=== PATIENT | female | born 1990 | race Hispanic/Latino ===

== ENCOUNTER 2016-11-16 17:13 | Emergency (ER) | payer OTHER ==
[~2016-11-16] VITALS: Ht 162.6 cm; Wt 59.0 kg
[~2016-11-16 17:13] MED LIST: BACTRIM DS 8001 TAB PO; BACTRIM DS TAB1 EACH PO; CARAFATE1 GM/10 ML PO; CIPRO 500MG (E500 MG PO; IBUPROFEN800 M1 PO; MECLIZINE HCL25 MG PO; MIRTAZAPINE15 MG PO; NAPROSYN 500 M500 MG PO; PROTONIX 40MG T40 MG PO; TRAMADOL50 MG PO
[2016-11-16 17:27] VITALS: BP 115/70
[2016-11-16] MEDS ORDERED: MEDROXYPRO150 MG/11 (17:50)
--- NOTE | 2016-11-16 17:59 | ED SKIN/ALLERGY COMPLAINT ---
History of Present Illness General Chief Complaint: Skin Rash/ Abcess Stated Complaint: PT HAS A RASH OVER HER BODY Source: patient Exam Limitations: no limitations Vital Signs & Intake/Output Vital Signs & Intake/Output Vital Signs Date Time Temp Pulse Resp B/P B/P Pulse O2 O2 Flow FiO2 Mean Ox Delivery Rate 11/16 1727 98.3 80 16 115/70 98 Room Air Room Air Allergies Coded Allergies: No Known Allergies (11/16/16) Reconcile Medications Hydroxyzine HCl 25 MG TABLET 1 TAB PO BID PRN itching Meclizine HCl 25 MG TABLET 1 TAB PO TIDPRN DIZZINESS Medroxyprogesterone Acetate (Unknown Strength) SYRINGE (Unknown Dose) UNKNOWN (Reported) Triage Note: PT BROUGHT DIRECTLY TO [facility] 18 FOR RASH TO LEFT HIP RIGHT FLANK, BACK AND RIGHT ARM. STATES IT STARTED A COUPLE DAYS PRIOR AND HAS BEEN SPREADING. STATES ONYL SYMPTOMS IS ITCHING Triage Nurses Notes Reviewed? yes : No Patient currently breastfeeds: No HPI: This patient is a 26-year-old female who presented to the emergency department today for evaluation of a rash. The patient reported that she first noticed the rash on her upper, anterior left thigh approximately a week ago. She reported that it started to spread a couple days ago when she noticed that she was getting the rash on her right forearm and right shoulder blade a couple days ago. The patient reported that the rash is itchy and not painful. She denied any fevers or chills. No chest pain or difficulty breathing. She was sick with the flu a couple weeks ago. She reported that at that time she did have a scratchy throat. She denied any abdominal pain, nausea, vomiting. No paresthesias. Past History Travel History Traveled to [place] past 21 day No Medical History Any Pertinent Medical History? see below for history Neurological: NONE EENT: NONE Cardiovascular: NONE Respiratory: NONE Gastrointestinal: cholecystitis Hepatic: NONE Renal: NONE Musculoskeletal: NONE Psychiatric: depression Endocrine: NONE Blood Disorders: NONE Cancer(s): NONE APARTMENT COORDINATOR/Reproductive: genital herpes Tetanus Vaccine: 09/06/12 Surgical History Surgical History: cholecystectomy Psychosocial History Who do you live with Significant Other Services at Home NONE What is your primary language Slovak Tobacco Use: Never used ETOH Use: denies use Illicit Drug Use: denies illicit drug use Family History Hx Contributory? No Review of Systems Review of Systems Constitutional: Reports: no symptoms. EENTM: Reports: no symptoms. Respiratory: Reports: no symptoms. Cardiovascular: Reports: no symptoms. GI: Reports: no symptoms. Musculoskeletal: Reports: no symptoms. Skin: Reports: see HPI. Neurological/Psychological: Reports: no symptoms. All Other Systems: Reviewed and Negative Physical Exam Physical Exam General Appearance: well developed/nourished, no apparent distress, alert, awake Comments: Well-developed well-nourished person in no acute distress HEENT: Normal EENT exam, normocephalic/atraumatic, moist mucous membranes Pupils equally round and reactive to light. Neck: Supple, no lymphadenopathy Back: Normal gait Cardiovascular: Regular rate and rhythm with no murmurs, rubs, or gallops Respiratory: Chest nontender. No respiratory distress. Breath sounds clear to auscultation bilaterally Extremity: Normal and equal pulses Neuro: Alert oriented x3, motor sensory normal, cranial nerves II through XII grossly intact. Skin: Skin is warm and dry. Maculopapular, erythematous, coalescing rash to the proximal anterior left thigh with extension into the groin region and under the abdomen. Maculopapular, erythematous rash noted to the right forearm with overlying excoriations. Papular, erythematous rash to the right shoulder blade. No central clearing Psych: Mood and affect is normal, memory and judgment is normal. Progress Differential Diagnosis: abscess/cellulitis, allergic reaction, contact dermatitis, erythema multiforme, lyme disease, scarlet fever, shingles, urticaria Plan of Care: Orders Procedure Date/time Status COMPREHENSIVE METABOLIC PANEL 11/16 175 Complete CBC WITHOUT DIFFERENTIAL 11/16 1753 Complete Laboratory Tests 11/16/16 1818: Anion Gap 12, Estimated GFR > 60, BUN/Creatinine Ratio 15.7, Glucose 83, Calcium 9.2, Total Bilirubin 0.3, AST 15, ALT 28, Alkaline Phosphatase 47, Total Protein 7.1, Albumin 3.9, Globulin 3.2, Albumin/Globulin Ratio 1.2, CBC w Diff NO MAN DIFF REQ, RBC 4.16 L, MCV 81.4, MCH 26.8 L, RDW 16.7 H, MPV 10.4, Gran % 54.0 , Lymphocytes % 33.7, Monocytes % 7.1, Eosinophils % 4.1, Basophils % 1.1, Absolute Granulocytes 4.8, Absolute Lymphocytes 3.0, Absolute Monocytes 0.6, Absolute Eosinophils 0.4, Absolute Basophils 0.1, PUBS MCHC 32.9 L Departure Departure Disposition: HOME OR SELF CARE Condition: Stable Clinical Impression Primary Impression: Rash Referrals: SELVIN MENA APRN (PCP/Family) LAURY JENKINS,LIEN Ross Additional Instructions: Please take medication as prescribed for itching. You may follow-up with the ethics officer's information has been provided in this packet. Please follow-up with your primary care physician as well. Return for any worsening symptoms or concerns. Departure Forms: Customer Survey General Discharge Information Prescriptions: Current Visit Scripts Hydroxyzine HCl 1 TAB PO BID PRN itching #10 TAB
[2016-11-16 18:24] LABS: ABSOLUTE BASOPHIL COUNT 0.1 /CUMM (0.0-0.2); ABSOLUTE EOSINOPHIL COUNT 0.4 /CUMM (0.0-0.7); ABSOLUTE GRANULOCYTE CT 4.8 /CUMM (1.4-6.5); ABSOLUTE MONOCYTE COUNT 0.6 /CUMM (0.10-0.60); BASOPHIL % 1.1 % (0.0-2.0); EOSINOPHIL % 4.1 % (0-5); HEMATOCRIT 33.9 % (37-47); MEAN CORPUSCULAR HGB 26.8 PG (27.0-31.0); MEAN CORPUSCULAR HGB CONC 32.9 G/DL (33.0-37.0); MEAN CORPUSCULAR VOLUME 81.4 FL (81.0-99.0); MEAN PLATELET VOLUME 10.4 FL (7.4-10.4); PLATELET COUNT 225 /CUMM (130-400); RBC DISTRIBUTION WIDTH 16.7 % (11.5-14.5); RED BLOOD CELL CT 4.16 /CUMM (4.20-5.40); WHITE BLOOD CELL COUNT 8.9 /CUMM (4.8-10.8)
[2016-11-16] MEDS ORDERED: HYDROXYZINE HCL25 M2 PO (18:53)
== END 2016-11-16 18:50 ==
LOC: ERH 17:13
PROVIDERS: Physician Assistant
DX: R21 Rash and other nonspecific skin eruption (principal)

== ENCOUNTER 2017-08-08 10:53 | Inpatient (IN) | payer OTHER ==
[~2017-08-08] VITALS: Ht 162.6 cm; Wt 56.9 kg
[~2017-08-08 10:53] MED LIST changes: +HYDROXYZINE HCL25 M2 PO; +MEDROXYPRO150 MG/11
--- NOTE | 2017-08-08 11:18 | ED GI/GU/ABDOMINAL COMPLAINT ---
See Addendum History of Present Illness General Chief Complaint: Psychiatric Related Complaint Stated Complaint: +SI, +NVD Source: patient Exam Limitations: no limitations Vital Signs & Intake/Output Vital Signs & Intake/Output Vital Signs Date Time Temp Pulse Resp B/P B/P Pulse O2 O2 Flow FiO2 Mean Ox Delivery Rate 08/08 2237 98.8 74 18 90/50 98 Room Air 08/08 2035 98.3 70 18 90/44 99 08/08 1823 98.1 84 18 100/60 99 Room Air 08/08 1652 98.6 75 16 98/56 98 Room Air 08/08 1423 98.5 80 20 94/50 99 Room Air 08/08 1230 97 Room Air 08/08 1100 98.3 90 16 117/81 96 Room Air ED Intake and Output 08/09 0000 08/08 1200 Intake Total 1000 Output Total Balance 1000 Intake, IV 1000 Allergies Coded Allergies: No Known Allergies (11/16/16) Reconcile Medications Hydroxyzine Hydrochloride (Atarax) 25 MG TABLET 1 TAB PO BID PRN itching Meclizine HCl 25 MG TABLET 1 TAB PO TIDPRN DIZZINESS Medroxyprogesterone Acetate (Unknown Strength) SYRINGE (Unknown Dose) UNKNOWN (Reported) Triage Note: PT TO ED C/O +N/V/D X2 DAYS, REPORTS SHE HAS NOT BEEN EATING MUCH, AND UNABLE TO KEEP ANYTHING DOWN. STATES SHE HAS BEEN HAVING SUICIDAL THOUGHTS WELL, REPORTS INCREASED STRESS IN HER LIFE. DENIES ANY ETOH/DRUG. DENIES ANY HI. Triage Nurses Notes Reviewed? yes ? n Is pt currently ? No HPI: Patient presents for evaluation of nausea and diarrhea that began abruptly yesterday. In addition patient is having a constant aching moderate to severe epigastric abdominal pain. She denies any associated fever, cold symptoms, ill contacts, suspicious meals or recent travel. She likewise denies vomiting or dysuria. In addition she states that beginning this morning she has been feeling suicidal, planning on taking an overdose of pills at home. She states that she's been under a lot of stress recently including being a single mother and a recent illness of her boyfriend. (Valery JENKINS,Erasmo Lacy) Past History Travel History Traveled to [place] past 21 day No Medical History Any Pertinent Medical History? 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 No (Valery JENKINS,Erasmo Lacy) Review of Systems Review of Systems Constitutional: Reports: no symptoms. EENTM: Reports: no symptoms. Respiratory: Reports: no symptoms. Cardiovascular: Reports: no symptoms. GI: Reports: see HPI. Genitourinary: Reports: no symptoms. Musculoskeletal: Reports: no symptoms. Skin: Reports: no symptoms. Neurological/Psychological: Reports: see HPI. Hematologic/Endocrine: Reports: no symptoms. Immunologic/Allergic: Reports: no symptoms. All Other Systems: Reviewed and Negative (Valery JENKINS,Erasmo Lacy) Physical Exam Physical Exam Gastrointestinal: see below Comments: Gen.: Well-nourished, well-developed, no acute respiratory distress. Head: Normocephalic, atraumatic. Eyes: Normal inspection bilaterally Ears: Normal inspection bilaterally Nose: Normal inspection Throat/mouth : Moist mucosa Neck: Supple, full range of motion, no goiter Heart: Regular rate and rhythm, no murmurs rubs or gallops Lungs: Clear to auscultation bilaterally with normal air entry Chest: Nontender Back: Normal range of motion Abdomen: Soft, mild epigastric abdominal tenderness without rebound or guarding, nondistended, normal bowel sounds Extremities: Normal range of motion grossly, equal radial pulses, no cyanosis clubbing or edema Neurologic: Cranial nerves grossly intact, speech is clear Skin: warm and dry Psychiatric: Calm, cooperative, no apparent delusions or hallucinations, tearful at times, depressed affect Core Measures ACS in differential dx? No Sepsis Present: No Sepsis Focused Exam Completed? No (Valery JENKINS,Erasmo Lacy) Progress Differential Diagnosis: GASTROENTERITIS, FOOD POISONING, DEPRESSION, BIPOLAR DISORDER Plan of Care: Orders Procedure Date/time Status ED CRISIS PSYCH CONSULT 08/08 1116 Active Continuous Observation Monitor 08/08 1103 Active URINE 08/08 1103 Complete URINE DRUG SCREEN FOR ER ONLY 08/08 1103 Complete URINALYSIS 08/08 1103 Complete LIPASE 08/08 1103 Complete HUMAN BETA HCG SCREEN 08/08 1103 Complete ETHANOL 08/08 1102 Complete COMPREHENSIVE METABOLIC PANEL 08/08 1102 Complete CBC WITHOUT DIFFERENTIAL 08/08 1102 Complete ED CRISIS PSYCH CONSULT 08/08 1102 Active Laboratory Tests 08/08/17 1127: Anion Gap 16, Estimated GFR > 60, BUN/Creatinine Ratio 11.7, Glucose 93, Calcium 10.2, Total Bilirubin 0.5, AST 15, ALT 26, Alkaline Phosphatase 65, Total Protein 8.0, Albumin 4.7, Globulin 3.3, Albumin/Globulin Ratio 1.4, Lipase 89, Total Beta HCG NEGATIVE, CBC w Diff NO MAN DIFF REQ, RBC 4.66, MCV 83.2, MCH 26.9 L, RDW 12.9, MPV 10.5 H, Gran % 72.1, Lymphocytes % 21.4, Monocytes % 5.7 , Eosinophils % 0.6, Basophils % 0.2, Absolute Granulocytes 6.2, Absolute Lymphocytes 1.8, Absolute Monocytes 0.5, Absolute Eosinophils 0.1, Absolute Basophils 0, PUBS MCHC 32.3 L, Serum Alcohol < 10.0 08/08/17 1122: Urine Opiates Screen < 100.00, Methadone Screen < 40, Barbiturate Screen < 60, Ur Phencyclidine Scrn < 6.00, Amphetamines Screen < 100, U Benzodiazepines Scrn < 85, Urine Cocaine Screen < 50, Urine Cannabis Screen < 5.00, Urine Color YEL, Urine Clarity CLEAR, Urine pH 6.5, Ur Specific [place] <= 1.005, Urine Protein NEG, Urine Ketones NEG, Urine Nitrite NEG, Urine Bilirubin NEG, Urine Urobilinogen 0.2, Ur Leukocyte Esterase NEG, Ur Microscopic EXAM NOT REQUIRED, Urine Hemoglobin NEG, Urine Glucose NEG, Urine Test NEGATIVE 08/08/17 1116: Lipase Cancelled, Total Beta HCG Cancelled 7:15 PM PATIETN SIGNED OUT TO ME BY DR RASMUSSEN, PENDING CRISIS INPATIENT BED. (David JENKINS,Shawna) Initial ED EKG: none Comments: 08/08/2017 1:17:47 PM patient is feeling better after medications and IV fluids. She appears comfortable. 08/08/2017 7:28:17 PM Charley has been evaluated by the desktop support specialist and it is felt that she should be admitted due to her suicidal ideation and overlying depression. However the fact that the patient is potentially contagious is of concern. The desktop support specialist will contact the nursing central supply technician supervisor regarding the possibility of placement in a semiprivate room. Patient's case signed out to Dr. Hernandez. (Erasmo Rasmussen MD) Hand-Off Endorsed To: Erasmo Rasmussen MD Endorsed Time: 0700 Pending: other (CRISIS ADMISSION) (David JENKINS,Shawna) Departure Departure Disposition: STILL A PATIENT Condition: Stable Clinical Impression Primary Impression: Depression Qualifiers: Depression Type: unspecified Qualified Code: F32.9 - Major depressive disorder, single episode, unspecified Secondary Impressions: Gastroenteritis, Suicide ideation Referrals: Sil Sarah APRN (PCP/Family) Departure Forms: Customer Survey General Discharge Information (Erasmo Rasmussen MD)
[2017-08-08 11:37] LABS: ABSOLUTE BASOPHIL COUNT 0 /CUMM (0.0-0.2); ABSOLUTE EOSINOPHIL COUNT 0.1 /CUMM (0.0-0.7); ABSOLUTE GRANULOCYTE CT 6.2 /CUMM (1.4-6.5); ABSOLUTE LYMPH COUNT 1.8 /CUMM (1.2-3.4); ABSOLUTE MONOCYTE COUNT 0.5 /CUMM (0.10-0.60); BASOPHIL % 0.2 % (0.0-2.0); EOSINOPHIL % 0.6 % (0-5); GRANULOCYTE % 72.1 % (42.2-75.2); HEMATOCRIT 38.8 % (37-47); MEAN CORPUSCULAR HGB 26.9 PG (27.0-31.0); MEAN CORPUSCULAR HGB CONC 32.3 G/DL (33.0-37.0); MEAN CORPUSCULAR VOLUME 83.2 FL (81.0-99.0); MEAN PLATELET VOLUME 10.5 FL (7.4-10.4); PLATELET COUNT 231 /CUMM (130-400); RBC DISTRIBUTION WIDTH 12.9 % (11.5-14.5); RED BLOOD CELL CT 4.66 /CUMM (4.20-5.40); WHITE BLOOD CELL COUNT 8.5 /CUMM (4.8-10.8)
--- NOTE | 2017-08-08 18:26 | ED PSY CRISIS COLLATERAL NOTE ---
Collateral Note Collateral Note Family/Inform/Mack Contacts: Clinician spoke with pt.'s sister Gian Perez. Sister informed this newswriter that the pt. has been under stress recently with working 2 jobs to support her 2 daughters, paying rent. Her boyfriend was in the ICU recently and after he recovered and was out, she found out he was cheating on her and they broke up. Gian informed this newswriter that her sister has been crying alot recently and this morning she called her and said she was thinking about hurting herself. Sister reported she has never heard pt. say anything like this before.
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
[2017-08-09 16:53] VITALS: BP 101/59
[2017-08-09 19:41] VITALS: BP 101/59
[2017-08-10 07:43] VITALS: BP 93/53
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
[2017-08-10 13:01] VITALS: BP 114/64
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
[2017-08-10 15:53] VITALS: BP 106/53
--- NOTE | 2017-08-10 19:01 | History & Physical ---
General Information and HPI MD Statement: I have seen and personally examined LOUIE ORTEGA and documented this H&P. The patient is a 27 year old F who presented with a patient stated chief complaint of " I don't want to be here anymore"]. Source of Information: patient Exam Limitations: no limitations History of Present Illness: 27-year-old female originally came in complaining of nausea vomiting and diarrhea for 2 days and some epigastric pain but after asking her complaint of suicidal ideations planning to overdose on pills at home. States she is very stressed out being a single mother of 2 children and illness of her boyfriend. Is been depressed with lack of appetite more anxiety. For all those reasons is admitted for evaluation and at the time she arrived to Inpatient Psychiatry her GI symptoms had resolved. Allergies/Medications Allergies: Coded Allergies: No Known Allergies (11/16/16) Home Med list Hydroxyzine Hydrochloride (Atarax) 25 MG TABLET 1 TAB PO BID PRN itching Meclizine HCl 25 MG TABLET 1 TAB PO TIDPRN DIZZINESS Medroxyprogesterone Acetate (Unknown Strength) SYRINGE (Unknown Dose) UNKNOWN (Reported) Compliance With Home Meds: UNKNOWN Past History Travel History Traveled to [place] past 21 day No Medical History Neurological: NONE EENT: NONE Cardiovascular: NONE Respiratory: NONE Gastrointestinal: cholecystitis Hepatic: NONE Renal: NONE Musculoskeletal: NONE Psychiatric: depression Endocrine: NONE Blood Disorders: NONE Cancer(s): NONE [employer] E[employer]ER/Reproductive: genital herpes Isolation History: Standard Tetanus Vaccine: 09/06/12 Surgical History Surgical History: cholecystectomy Past Family/Social History Psychosocial History Services at Home: NONE Employment History Employment Employed 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 Exam & Diagnostic Data Last 24 Hrs of Vital Signs/I&O Vital Signs Date Time Temp Pulse Resp B/P B/P Pulse O2 O2 Flow FiO2 Mean Ox Delivery Rate 08/10 1553 80 106/53 08/10 1301 83 114/64 08/10 0743 97.9 70 93/53 08/09 1941 97.7 96 101/59 Intake & Output 08/10 1600 08/10 0800 08/10 0000 Intake Total Output Total Balance Patient 125 lb Weight Physical Exam General Appearance Alert, Oriented X3, Cooperative, No Acute Distress Skin No Rashes, No Breakdown, No Significant Lesion HEENT PERRLA, EOMI Neck Supple, No JVD, No thryomegaly Lymphatic Axillary nl, Cervical nl Cardiovascular Regular Rate, No Murmurs Lungs Clear to Auscultation, Normal Air Movement Abdomen Soft, No Tenderness Neurological Exam Findings: Normal Gait, Normal Speech, Strength at 5/5 X4 Ext, Normal Tone, Sensation Intact, Cranial Nerves 3-12 NL, Reflexes 2+ Cranial Nerves II through XII: Intact Extremities No Edema, Normal Pulses Vascular Normal Pulses, Pulses Symmetrical Last 24 Hrs of Labs/Miguel: Laboratory Tests 08/08/17 1127: Anion Gap 16, Estimated GFR > 60, BUN/Creatinine Ratio 11.7, Glucose 93, Calcium 10.2, Total Bilirubin 0.5, AST 15, ALT 26, Alkaline Phosphatase 65, Total Protein 8.0, Albumin 4.7, Globulin 3.3, Albumin/Globulin Ratio 1.4, Lipase 89, Total Beta HCG NEGATIVE, CBC w Diff NO MAN DIFF REQ, RBC 4.66, MCV 83.2, MCH 26.9 L, RDW 12.9, MPV 10.5 H, Gran % 72.1, Lymphocytes % 21.4, Monocytes % 5.7 , Eosinophils % 0.6, Basophils % 0.2, Absolute Granulocytes 6.2, Absolute Lymphocytes 1.8, Absolute Monocytes 0.5, Absolute Eosinophils 0.1, Absolute Basophils 0, PUBS MCHC 32.3 L, Serum Alcohol < 10.0 08/08/17 1122: Urine Opiates Screen < 100.00, Methadone Screen < 40, Barbiturate Screen < 60, Ur Phencyclidine Scrn < 6.00, Amphetamines Screen < 100, U Benzodiazepines Scrn < 85, Urine Cocaine Screen < 50, Urine Cannabis Screen < 5.00, Urine Color YEL, Urine Clarity CLEAR, Urine pH 6.5, Ur Specific [place] <= 1.005, Urine Protein NEG, Urine Ketones NEG, Urine Nitrite NEG, Urine Bilirubin NEG, Urine Urobilinogen 0.2, Ur Leukocyte Esterase NEG, Ur Microscopic EXAM NOT REQUIRED, Urine Hemoglobin NEG, Urine Glucose NEG, Urine Test NEGATIVE 08/08/17 1116: Lipase Cancelled, Total Beta HCG Cancelled Assessment/Plan As Ranked By This Provider Problem List: 1. Gastroenteritis 2. Suicide ideation 3. Rash Miscellaneous Miscellaneous Documentation Attending Case Discussed With: Saji Martin MD Primary Care Physician: Sil Sarah APRN Patient sees these Specialists Psychiatry Level of Patient Care: ALICIA Martin Consults Needed: Consulting Specialty: Psychiatry Consulting Physician: Dr. Hernandez Reason for Consult: depression and suicidal ideations
[2017-08-10 19:51] VITALS: BP 116/97
[2017-08-11 08:02] VITALS: BP 95/58
--- NOTE | 2017-08-11 08:31 | CP SOUTH PROGRESS NOTE PSYCH ---
Psych (Inpt) Progress Note Progress Note Include the following elements, when applicable: Involvement in the active treatment of the patient with behavioral observations of the patient and the patient's response to the treatment. Review of the ongoing treatment process in the context of the treatment plan. Indication of how multi-disciplinary staff members are carrying out the treatment plan. Plans for future interventions and recommendations for revision of the treatment plan. Liaison with other physicians/providers. Progress Note: SUBJECTIVE: Patient reports sleeping om with the ativan. Reports able to eat but not having much appetite. Feels anxious with lots of worries about her children and her job and her rent. Interested in talking to oncology social work regarding any possible support, financial or otherwise, that she may be available for. No current SI /HI/AVH/SIB. Reports some lightheadedness and shakiness following start of sertraline, but not bothersome and willing to increase dose tomorrow to 50 mg. No abnormal movements reported. No other physical complaints or illness reported. OBJECTIVE: Per nursing, pt did well overnight without any acute events. Slept all night. Pt remained in behavioral control, adherent with staff instructions and medications. SS. Current Medications Sig/Rafael Start time Last Medication Dose Route Stop Time Status Admin Acetaminophen 650 MG .STK-MED ONE 08/10 1951 DC PO 08/10 1952 Acetaminophen 650 MG Q4P PRN 08/09 1530 AC 08/10 PO 195 Al Hydroxide/Mg 30 ML Q4-6 PRN PRN 08/09 1530 AC Hydroxide PO Diphenhydramine HCl 25 MG Q6P PRN 08/09 2115 AC 08/10 PO 2210 Lorazepam 1 MG AT BEDTIME 08/10 2200 AC 08/10 PO 2149 Lorazepam 0.5 MG Q4P PRN 08/10 0815 AC PO 08/17 0814 Magnesium Hydroxide 30 ML AT BEDTIME PRN 08/09 1530 AC PO Sertraline HCl 25 MG DAILY 08/10 1000 AC 08/10 PO 1113 Vital Signs Date Time Temp Pulse Resp B/P B/P Pulse O2 O2 Flow FiO2 Mean Ox Delivery Rate 08/11 0802 98.1 98 95/58 08/10 1950 97.4 88 116/97 08/10 1553 80 106/53 08/10 1301 83 114/64 MSE: GENERAL: Alert and oriented x3, good eye contact, well-groomed, no apparent distress SPEECH: Moderate rate and volume, normal prosody, fluent MOTOR: No tics, tremors, stereotypy, or abnormal movements MOOD: "Alright" AFFECT: calm and quiet, mood congruent, mildly constricted range, non-labile , well related THOUGHT PROCESS: Logical, linear and goal-directed THOUGHT CONTENT: No SI/SI/AVH/SIB, no apparent grandiosity, paranoia, delusions , but with ruminations on her children her job and rent. COGNITION: No apparent deficit in attention, memory or concentration JUDGMENT: fair INSIGHT: fair ASSESSMENT: 27-year-old SLF with depressed mood, anxiety and OCD spectrum symptoms have been a feeling overwhelmed for the past few weeks to about 3 months and more recently started contemplating suicide. No history of suicide attempts and no history of inpatient psychiatric hospitalizations before minimal psychiatric treatment including a short period of Remeron which caused side effects. Today patient denies SI/HI/AVH/SIB, no suicidal thoughts since Sunday, tolerating increase in sertraline with mild side effects but in agreement with up titrating tomorrow to 50 mg. DSM 5 Diagnosis(es): Generalized anxiety disorder Unspecified depressive disorder Obsessive-compulsive spectrum disorder, mild Treatment Plan: -maintain safety, vs tid, q15min checks -continue meds, increasing sertraline to 50 mg tomorrow as tolerated, to target dose of 100mg/day -prn ativan helping with sleep, addiction potential psychoeducation provided -Patient interested in speaking with social work regarding any services she may be eligible for -continue plan
[2017-08-11 12:06] VITALS: BP 112/69
[2017-08-11 15:57] VITALS: BP 103/69
[2017-08-11 20:04] VITALS: BP 103/63
--- NOTE | 2017-08-12 02:04 | CP SOUTH PROGRESS NOTE PSYCH ---
Psych (Inpt) Progress Note Progress Note Include the following elements, when applicable: Involvement in the active treatment of the patient with behavioral observations of the patient and the patient's response to the treatment. Review of the ongoing treatment process in the context of the treatment plan. Indication of how multi-disciplinary staff members are carrying out the treatment plan. Plans for future interventions and recommendations for revision of the treatment plan. Liaison with other physicians/providers. Progress Note: SUBJECTIVE: Patient feels that she is quite anxious today especially talking to her for an 8-year-old daughters and really missing them. Patient feels that she's not had much appetite today only able to eat a small amount of food at lunch and dinner. Patient denies nausea, vomiting, any other illness. Patient reports sleeping well with Ativan but expresses concern for the addictive potential. Patient tolerating 50 mg of sertraline well today. No current SI/ HI/AVH/SIB. No abnormal movements noted. Med list reviewed, discussed discontinuing prn Ativan and replacing with Atarax for anxiety, risks and benefits discussed, patient and agreement. OBJECTIVE: Per nursing, pt did well overnight without any acute events. Slept all night. Pt remained in behavioral control, adherent with staff instructions and medications. VSS. Current Medications Sig/Rafael Start time Last Medication Dose Route Stop Time Status Admin Acetaminophen 650 MG .STK-MED ONE 08/11 1809 DC PO 08/11 1810 Acetaminophen 650 MG Q4P PRN 08/09 1530 AC 08/11 PO 1809 Al Hydroxide/Mg 30 ML .STK-MED ONE 08/11 2214 DC Hydroxide PO 08/11 2215 Al Hydroxide/Mg 30 ML Q4-6 PRN PRN 08/09 1530 AC 08/11 Hydroxide PO 2214 Diclofenac Sodium 1 NABEEL 4 TIMES/DAY PRN 08/11 1830 AC 08/12 TOP 0929 Diphenhydramine HCl 25 MG .STK-MED ONE 08/11 2241 DC PO 08/11 2242 Diphenhydramine HCl 25 MG Q6P PRN 08/09 2115 AC 08/11 PO 2241 Lorazepam 1 MG AT BEDTIME 08/10 2200 AC 08/11 PO 2157 Lorazepam 0.5 MG Q4P PRN 08/10 0815 AC PO 08/17 0814 Magnesium Hydroxide 30 ML AT BEDTIME PRN 08/09 1530 AC PO Sertraline HCl 50 MG DAILY 08/12 1000 AC 08/12 PO 0902 Vital Signs Date Time Temp Pulse Resp B/P B/P Pulse O2 O2 Flow FiO2 Mean Ox Delivery Rate 08/12 1206 86 118/65 08/12 0815 97.5 97 106/63 08/11 2003 98.1 84 103/63 08/11 1557 94 103/69 MSE: GENERAL: Alert and oriented x3, good eye contact, well-groomed, no apparent distress SPEECH: Moderate rate and volume, normal prosody, fluent MOTOR: No tics, tremors, stereotypy, or abnormal movements MOOD: "anxious today" AFFECT: Calm and pleasant, mood congruent, mildly constricted range but with appropriate smiles, non-labile, well related THOUGHT PROCESS: Logical, linear and goal-directed THOUGHT CONTENT: No SI/SI/AVH/SIB, no apparent grandiosity, paranoia, delusions , but with ruminations on her children COGNITION: No apparent deficit in attention, memory or concentration JUDGMENT: fair INSIGHT: fair ASSESSMENT: 27-year-old SLF with depressed mood, anxiety and OCD spectrum symptoms have been a feeling overwhelmed for the past few weeks to about 3 months and more recently started contemplating suicide. No history of suicide attempts and no history of inpatient psychiatric hospitalizations before minimal psychiatric treatment including a short period of Remeron which caused side effects. Today patient denies SI/HI/AVH/SIB, tolerating increase in sertraline to 50 mg however continues to remain anxious. Psychoeducation provided regarding addiction potential of Ativan, will DC when necessary Ativan and replace with Atarax. DSM 5 Diagnosis(es): Generalized anxiety disorder Unspecified depressive disorder Obsessive-compulsive spectrum disorder, mild Treatment Plan: -maintain safety, vs tid, q15min checks -continue meds, sertraline increased to 50 mg on 08/12, uptitrate to target dose of 100mg/day -dc prn ativan and replace with atarax 25 mg po q6h prn anxiety/insomnia -Patient interested in speaking with social work regarding any services she may be eligible for -continue plan, pt anxious to go home, interested in outpatient treatment
[2017-08-12 08:15] VITALS: BP 106/63
[2017-08-12 12:06] VITALS: BP 118/65
[2017-08-12 15:51] VITALS: BP 126/74
[2017-08-12 18:58] VITALS: BP 99/64
[2017-08-13 07:47] VITALS: BP 95/57
--- NOTE | 2017-08-13 12:12 | CP SOUTH PROGRESS NOTE PSYCH ---
Psych (Inpt) Progress Note Progress Note I reviewed Dr. Virginia Kelly, MDs notes for Sat. + Sunday. Nursing Staff, Group and Activity Therapists, Social Work Staff, and Psychiatrist discussed the patient's treatment and progress in the treatment team meeting this morning. MSE: Charley reported ongoing anxiety, asking about discharge/ misses her daughters and worried about them, tolerated 50 mg of sertraline, denied feeling hopeless or worthless, denied wishing or thinking of suicide, No abnormal movements noted, she was alert and oriented x3, good eye contact, well-groomed, no apparent distress, normal speech, continues to be depressed but better than the previous 3 days, calm and pleasant, non-labile, thoughts were logical, linear and goal-directed, She denied thoughts of violence or homicide, no apparent grandiosity or paranoia, no delusions, no apparent deficit in attention, good memory and concentration ASSESSMENT: A 27-year-old single with depressed mood, anxiety and OCD spectrum symptoms have been a feeling overwhelmed for the past few weeks to about 3 months and more recently started contemplating suicide. No history of suicide attempts and no history of inpatient psychiatric hospitalizations. Diagnoses: Generalized anxiety disorder Unspecified depressive disorder Obsessive-compulsive spectrum disorder, mild Treatment Plan Update: Continue inpatient psychiatric care, likely discharge tomorrow Continue 15 minute checks Increase sertraline to 75 mg daily Nursing staff to provide nursing assessments per shift and provide education regarding symptoms and medications and medication side effects Social work to obtain collateral information and set up aftercare plans Psychiatrist evaluate patient daily Group therapy Milieu therapy
[2017-08-13 12:19] VITALS: BP 117/72
--- NOTE | 2017-08-13 13:27 | SOCIAL WORKER PROG NOTE PSYCH ---
Social Work Progress Note Progress Note Charley reports feeling less tearful. She remains a little anxious and feels alone. She misses her girls. She did speak with them over the weekend. She is feeling ready for discharge tomorrow so there is more of a plan in place. We talked about her being referred to OPS for med management and individual therapy with someone local. Talked about the importance of self-care and how that will help her remain out of the hospital. She seems to be responding to the supportive environment and being around people here. 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 Called OPS and scheduled an intake for tomorrow morning with Julieta Farias for 8:45am. A medication appt. is scheduled with Dr. Rodriguez for 08/29 at 4pm. Called [facility] in [place] and spoke with Jeimy Mead LCSW. Jeimy would like Charley to call to coordinate an appt. for Sunday. Informed Charley of these follow up appts. She was somewhat resistant to the idea of leaving so early tomorrow and going right across the street for her intake. She stated she felt pressured. I explained that there was a cancellation and they were able to fit her in and I thought it would be good since she wasn't working. I ended up giving her the outpatient phone number to call and see if there was anything else that worked better for her. She later came to my office stating that she was okay with leaving early and chose to keep the appt.
[2017-08-13 15:43] VITALS: BP 114/57
--- NOTE | 2017-08-13 16:18 | SOCIAL WORKER PROG NOTE PSYCH ---
Social Work Progress Note Progress Note Completed [facility] online review for cont. stay - 1 additional day. Expected D/C is 08/14/17.
[2017-08-13 19:44] VITALS: BP 105/70
[2017-08-14 07:39] VITALS: BP 93/55
[2017-08-14] MEDS ORDERED: ZOLOFT100 M1 PO (07:40)
[2017-08-14] MEDS ORDERED: LORAZEPAM0.5 M1 PO (07:40)
--- NOTE | 2017-08-14 07:45 | DISCHARGE SUMMARY REPORT-PSYCH ---
Visit Information Visit Dates/Diagnosis' Admission Date: 08/09/17 Discharge Date: 08/14/17 Reason for Admission: Charley was admitted because of thoughts of suicide in the past 3 weeks or so Psy Discharge Primary Diag: General Anxiety Disorder, Mood Disorder Psy Discharge Secondary Diag: Mood Disorder Hospital Course Significant Lab Findings: Charley's urine toxicology was clean. There were no significant abnormalities in her chemistry or blood count Course Complications: Charley did not have any complications during her stay at Inpatient Psychiatry Consultations: Charley had a history and physical examination. It was done by Dr. Garcia. Was noted that the patient had gastroenteritis and a rash prior to coming to Inpatient Psychiatry the symptoms were resolved by the time she was ready for discharge. Allergies: Coded Allergies: No Known Allergies (11/16/16) Hospital Course/[place] Response: Charley had a relatively short stay at Inpatient Psychiatry. She wasn't admitted in the evening hours of August 09 through crisis intervention in the emergency department. I evaluated the patient for her initial psychiatric evaluation on August 10 which was Sunday the patient was started on a low-dose of Zoloft's to address her anxiety depression and OCD spectrum symptoms. The patient was seen over the weekend by Dr. Kelly on Sunday and Sunday the and the . The Zoloft was increased to 50 mg and the patient tolerated the increase. The patient was seen on on Sunday and she reported that she is feeling much better and that she is ready for discharge. I told her that we would most likely think about discharging her tomorrow as long as we have a solid discharge plan and aftercare plan in place. I also discussed with her increasing the Zoloft to 75 mg with a target dose of 100 mg. Condition upon discharge: Charley was looking forward for discharge today. She seemed to be in good spirits. She reported that she has experienced an improvement in her level of anxiety. She reported that she is planning to take the a few days off and return back to work on Sunday. She reported that she would like to focus on her recovery and spending some time with her 2 daughters. She reported that she is not feeling hopeless or worthless and no longer wishing or thinking of suicide. She was alert oriented to time place and person. She showed good eye contact. She was well groomed she did not appear to be in any physical distress. Her speech was normal and was no pressure and no slurring in her words. She was calm and pleasant. Her thoughts were organized. There were no delusions. She denied any thoughts of violence or thoughts of homicide. There were no delusions of grandiosity or paranoia. She seemed to have reasonably good attention and concentration and no impairment in memory. Assessment: Charley is a 27-year-old single who was admitted because of depressed mood anxiety and some OCD symptoms. She was admitted because she reported that she has been feeling overwhelmed for the past few weeks and more recently started contemplating suicide. Charley has no history of suicide attempts in the past and no history of previous inpatient psychiatric hospitalizations. Discharge diagnoses: Generalized anxiety disorder. Unspecified depressive disorder. Obsessive- compulsive spectrum disorder. Mild Discharge plan: The patient The patient will be discharged home with a plan to follow-up with outpatient psychiatric services at [facility]. The patient was advised to increase the sertraline to 100 mg daily and a prescription for 2 weeks supply was sent to [facility] in [place] located on [address] The patient was told that I will be sending a prescription for 14 tablets of lorazepam 0.5 to be used as needed if there is any insomnia and that it will be discontinued after those 2 weeks. The patient was given a letter for her employer stating that she should take care of the rest of the week off and may return to work on August 20. Discharge HBIPS - Tobacco Use Treatment Offered Post DC Medications Offered: Not Applicable Post DC Tobacco Treatment Plan: Not Applicable - EtOH/Drug Use D/O Treatment Offered Post DC Medications Offered: NA-No EtOH/Drug Use D/O Post DC EtOH/SubAbuse [place] Plan: NA-No EtOH/Drug Use D/O Metabolic Screening - Screen if on a Neuroleptic Medication - Metabolic screening should include: - Blood Pressure, BMI, Glucose or Hgb A1c, & a - Lipid profile from within the past 365 days. Metabolic Screening ([X]) Not Applicable, patient not on a neuroleptic. OR () Patient on a neuroleptic(s) . Enter below results for Hemoglobin A1C, and lipid panel if obtained during the last 365 days. BMI: 21.500 Blood Pressure: 93/55 Laboratory Results From [facility] EHR (If applicable): Discharge Instructions General Discharge Information Multiple Neuroleptics: ([X]) Not Applicable OR Document below three failed attempts at monotherapy, or a plan to taper to monotherapy, or augmentation of Clozapine. () Discharge Diet Regular Discharge Activity Normal DC Disposition: Home Referrals Ordered Referrals Provider Referral 08/14/17 For Groups: Outpatient Psychiatry [facility] intake appt. 08/14/17 8:45am [address] [place] [address] Provider Referral 08/29/17 For Groups: Outpatient Psychiatry [facility] Outpatient Psychiatry appt. with Dr. Rodriguez 08/29 4pm [address] [place] [address] Provider Referral For Groups: [[facility]] Patient will follow up with [facility] for Individual Therapy [phone] [address] [place] [address] Prescriptions Stop taking the following medications: Hydroxyzine Hydrochloride (Atarax) 25 MG TABLET ORAL TWICE DAILY as needed for itching Qty = 10 Continue taking these medications: Meclizine HCl (Meclizine HCl) 25 MG TABLET 1 Tablet ORAL THREE TIMES A DAY NEEDED Qty = 30 Comments: Last Taken:NOT GIVEN IN THE HOSPITAL Time: Medroxyprogesterone Acetate (Medroxyprogesterone Acetate) (Unknown Strength) SYRINGE Unknown Dose Qty = 1 Comments: Last Taken:HELD Time: Start taking the following new medications: Sertraline HCl (Zoloft) 100 MG TABLET 1 Tablet ORAL DAILY Qty = 15 No Refills Comments: Last Taken:TO START 100MG DOSE TOMORROW 08/15/17 Time:RECEIVED 75MG AT 0800 ON 08/14/17 Lorazepam (Lorazepam) 0.5 MG TABLET 1 Tablet ORAL AT BEDTIME as needed for insomnia Qty = 14 No Refills Comments: Last Taken:TO START 0.5 MG DOSE TONIGHT 08/14/17 Time:RECEIVED 1MG AT 2145 ON 08/13/17 Copies To: Tony QUIROZ
--- NOTE | 2017-08-14 08:32 | CP SOUTH PROGRESS NOTE PSYCH ---
Psych (Inpt) Progress Note Progress Note Charley was looking forward to discharge today. She seemed to be in good spirits. She reported that she has experienced an improvement in her level of anxiety. She reported that she is planning to take the a few days off and return back to work on Sunday. She reported that she would like to focus on her recovery and spending some time with her 2 daughters. She reported that she is not feeling hopeless or worthless and no longer wishing or thinking of suicide. She was alert oriented to time place and person. She showed good eye contact. She was well groomed she did not appear to be in any physical distress. Her speech was normal and was no pressure and no slurring in her words. She was calm and pleasant. Her thoughts were organized. There were no delusions. She denied any thoughts of violence or thoughts of homicide. She seemed to have reasonably good attention and concentration and no impairment in memory. Assessment: Charley is a 27-year-old single who was admitted because of depressed mood anxiety and some OCD symptoms. She was admitted because she reported that she has been feeling overwhelmed for the past few weeks and more recently started contemplating suicide. Charley has no history of suicide attempts in the past and no history of previous inpatient psychiatric hospitalizations. Discharge diagnoses: Generalized anxiety disorder. Unspecified depressive disorder. Obsessive- compulsive spectrum disorder. Mild Discharge plan: The patient The patient will be discharged home with a plan to follow-up with outpatient psychiatric services at [facility]. The patient was advised to increase the sertraline to 100 mg daily and a prescription for 2 weeks supply was sent to [facility] in [place] located on [address] The patient was told that I will be sending a prescription for 14 tablets of lorazepam 0.5 to be used as needed if there is any insomnia and that it will be discontinued after those 2 weeks. The patient was given a letter for her employer stating that she should take care of the rest of the week off and may return to work on August 20.
--- NOTE | 2017-08-14 08:49 | SOCIAL WORKER PROG NOTE PSYCH ---
Social Work Progress Note Progress Note Charley got ready for discharge this morning. She was smiling and looking forward to seeing her children. She said she feels better and thought being here was helpful. Nursing reviewed her discharge follow up appts. and numbers to call if she were having suicidal thoughts again. She received a letter written by Dr. Martin indicating she should refrain from work over the next week. Encouraged Charley to follow up with [facility] to schedule a therapy appt. She did not call as directed yesterday. Left the unit at 8:45am for her OPS intake today.
--- NOTE | 2017-08-14 08:50 | SOCIAL WORKER PROG NOTE PSYCH ---
Social Work Progress Note Faxed Referral(s) Referred To: [facility] Transition of Care Documents sent: Health Summary Faxed to: [facility] Fax #: [phone] Faxed by: Mya Cervantes Date faxed: 08/14/17 Time Faxed: [phone]
== END 2017-08-14 08:45 | DRG 756 ==
LOC: ERH 10:53 → CP SOUTH 08-09 15:04 → ERHI 08-09 15:04 → ENRESERV 08-09 16:41 → CP SOUTH 08-09 16:42
PROVIDERS: Physician Assistant Medical
DX: F41.9 Anxiety disorder, unspecified (principal); F39 Unspecified mood [affective] disorder
CPT/HCPCS: 80307; 81003; 81025; 96374; 96375; G0463; G0480; J2405; J3101

== ENCOUNTER 2017-11-19 11:20 | Emergency (ER) | payer OTHER ==
[~2017-11-19 11:20] MED LIST changes: +LORAZEPAM0.5 M1 PO; +ZOLOFT100 M1 PO
[2017-11-19 11:44] VITALS: BP 105/72
[2017-11-19 12:11] LABS: ABSOLUTE BASOPHIL COUNT 0 /CUMM (0.0-0.2); ABSOLUTE EOSINOPHIL COUNT 0.2 /CUMM (0.0-0.7); ABSOLUTE GRANULOCYTE CT 4.1 /CUMM (1.4-6.5); ABSOLUTE LYMPH COUNT 2.2 /CUMM (1.2-3.4); ABSOLUTE MONOCYTE COUNT 0.5 /CUMM (0.10-0.60); BASOPHIL % 0.3 % (0.0-2.0); EOSINOPHIL % 2.2 % (0-5); GRANULOCYTE % 59.2 % (42.2-75.2); HEMATOCRIT 36.5 % (37-47); MEAN CORPUSCULAR HGB 27.1 PG (27.0-31.0); MEAN CORPUSCULAR HGB CONC 32.2 G/DL (33.0-37.0); MEAN CORPUSCULAR VOLUME 84.2 FL (81.0-99.0); MEAN PLATELET VOLUME 10.5 FL (7.4-10.4); PLATELET COUNT 244 /CUMM (130-400); RBC DISTRIBUTION WIDTH 14.2 % (11.5-14.5); RED BLOOD CELL CT 4.34 /CUMM (4.20-5.40)
== END 2017-11-19 13:00 | disposition admitted as inpatient to this hospital (09) ==
LOC: ERH 11:20
PROVIDERS: Physician Assistant Medical
DX: R07.9 Chest pain, unspecified (principal)
CPT/HCPCS: 93005; 93010; 99281